=== PATIENT | female | born 1955 | race Two or more races ===

== ENCOUNTER 2017-08-01 09:48 | Emergency (ER) | payer OTHER ==
[~2017-08-01] VITALS: Ht 157.5 cm; Wt 63.5 kg
[2017-08-01] MEDS ORDERED: HYDROCHLOROTH12.5 M1 (10:20)
[2017-08-01] MEDS ORDERED: VERAPAMIL ER120 MG (10:20)
== END 2017-08-01 13:19 | disposition home or self-care (01) ==
LOC: ER 09:48
DX: M54.89 Other dorsalgia (principal); M62.830 Muscle spasm of back

== ENCOUNTER 2020-06-13 08:33 | Emergency (ER) | payer OTHER ==
[~2020-06-13] VITALS: Ht 154.9 cm; Wt 62.6 kg
[~2020-06-13 08:33] MED LIST: HYDROCHLOROTH12.5 M1; VERAPAMIL ER120 MG
[2020-06-13] MEDS ORDERED: ADULT LOW DOSE81 M1 (08:55)
[2020-06-13] MEDS ORDERED: KETO10TA2 PO (16:34)
[2020-06-13] MEDS ORDERED: ORPHENADRINE C100 MG PO (16:34)
== END 2020-06-13 16:57 | disposition home or self-care (01) ==
LOC: ER 08:33 → CPU-OBS 08:51 → ER 16:57
DX: R07.89 Other chest pain (principal); M94.0 Chondrocostal junction syndrome [Tietze]; Z03.818 Encounter for observation for suspected exposure to other biological agents ruled out
CPT/HCPCS: G0378; G0379; 93005

== ENCOUNTER 2020-11-06 08:46 | Outpatient (CLI) | payer OTHER ==
[~2020-11-06 08:46] MED LIST changes: +ADULT LOW DOSE81 M1; +KETO10TA2 PO; +ORPHENADRINE C100 MG PO
== END 2020-11-06 08:53 | disposition home or self-care (01) ==
LOC: TOM 08:46
DX: Q61.02 Congenital multiple renal cysts (principal); N39.0 Urinary tract infection, site not specified; K57.90 Diverticulosis of intestine, part unspecified, without perforation or abscess without bleeding

== ENCOUNTER 2021-04-30 11:30 | Outpatient (CLI) | payer OTHER | END 2021-04-30 11:50 | disposition home or self-care (01) | LOC: PPH VACUNA 11:30 | PROVIDERS: ATTEND Emergency Medicine Pediatric Emergency Medicine | DX: Z23 Encounter for immunization (principal) ==

== ENCOUNTER 2021-12-06 10:06 | Outpatient (CLI) | payer OTHER | END 2021-12-06 10:12 | disposition home or self-care (01) | LOC: SONOGRAMA 10:06 | DX: R31.9 Hematuria, unspecified (principal) ==

== ENCOUNTER 2022-11-14 09:52 | Outpatient (CLI) | payer OTHER | END 2022-11-14 09:59 | disposition home or self-care (01) | LOC: RAD 09:52 | PROVIDERS: ATTEND Specialist | DX: I10 Essential (primary) hypertension (principal) ==

== ENCOUNTER 2023-06-05 12:40 | Outpatient (CLI) | payer OTHER | END 2023-06-05 12:43 | disposition home or self-care (01) | LOC: NUCLEAR 12:40 | PROVIDERS: ATTEND Specialist | DX: M81.0 Age-related osteoporosis without current pathological fracture (principal); Z13.820 Encounter for screening for osteoporosis ==

== ENCOUNTER → 2024-01-12 07:20 | Outpatient (CLI) | payer OTHER | END | disposition home or self-care (01) | LOC: NUCLEAR 07:00 | PROVIDERS: ATTEND Internal Medicine | DX: I20.9 Angina pectoris, unspecified (principal) | CPT/HCPCS: 78452; 93017; A9500 ==

== ENCOUNTER 2024-02-05 10:00 | Outpatient (CLI) | payer OTHER | END 2024-02-05 10:01 | disposition home or self-care (01) | LOC: NUCLEAR 10:00 | PROVIDERS: ATTEND Specialist | DX: I82.419 Acute embolism and thrombosis of unspecified femoral vein (principal); I87.2 Venous insufficiency (chronic) (peripheral) ==

== ENCOUNTER 2024-06-30 08:22 | Emergency (ER) | payer OTHER ==
[~2024-06-30] VITALS: Ht 154.9 cm; Wt 63.5 kg
[2024-06-30] MEDS ORDERED: AZITHROMYCIN500 MG PO (09:01)
[2024-06-30] MEDS ORDERED: MEDROLPACK PO (09:01)
[2024-06-30] MEDS ORDERED: SINGULAIR10 MG PO (09:01)
[2024-06-30] MEDS ORDERED: PEPCID AC20 MG PO (09:01)
== END 2024-06-30 09:04 | disposition home or self-care (01) ==
LOC: ER 08:24
DX: R53.81 Other malaise (principal); J02.0 Streptococcal pharyngitis; I10 Essential (primary) hypertension; Z88.2 Allergy status to sulfonamides

== ENCOUNTER 2024-10-21 11:58 | Outpatient (CLI) | payer OTHER ==
[~2024-10-21 11:58] MED LIST changes: +AZITHROMYCIN500 MG PO; +MEDROLPACK PO; +PEPCID AC20 MG PO; +SINGULAIR10 MG PO
== END 2024-10-21 12:05 | disposition home or self-care (01) ==
LOC: RAD 11:58
PROVIDERS: ATTEND Specialist
DX: J45.998 Other asthma (principal); E03.9 Hypothyroidism, unspecified

== ENCOUNTER 2025-03-07 10:54 | Outpatient (CLI) | payer OTHER | END 2025-03-07 11:01 | disposition home or self-care (01) | LOC: MRI 10:54 | PROVIDERS: ATTEND Orthopaedic Surgery | DX: M25.561 Pain in right knee (principal) | CPT/HCPCS: 73721 ==